=== PATIENT | male | born 1955 | race Asian ===

== ENCOUNTER 2024-06-01 16:52 | Emergency (ER) | payer MEDICARE, SELFPAY ==
[2024-06-01] VITALS (7 sets, daily range): BP systolic 121–129; BP diastolic 76–84; PULSE 53–88; RESP 12–20; TEMP 36.4–36.8; O2SAT 95–98; BMI 25.1
--- NOTE | ~2024-06-01 | CT_ITS ---
EXAMINATION: CT ABDOMEN AND PELVIS WITH CONTRAST CLINICAL INFORMATION: Abdominal pain COMPARISON: None available. TECHNIQUE: Multidetector volumetric images were obtained from the superior aspect of the liver through the pubic symphysis following administration 85 mL of Omnipaque 350 intravenous contrast. Sagittal and coronal reformatted images were obtained on the technologist's workstation. Oral contrast: No This CT examination was performed using dose optimization techniques as appropriate, variously including the following: *Automated exposure control *Adjustment of mA and/or kV according to patient size (this includes techniques or standardized protocols for targeted exams where dose is matched to indication/reason for exam; i.e. extremities or head) *Use of iterative reconstruction technique DLP: 412 mGy-cm FINDINGS: LUNG BASES: The visualized lung bases are unremarkable. LIVER, GALLBLADDER, AND BILIARY TREE: The liver is normal in size, shape, and attenuation. 1.1 cm simple fluid density cyst in the dome of the liver. Postsurgical changes consistent with liver transplant. Hepatic vasculature appears patent. No biliary ductal dilatation is present. Status post cholecystectomy PANCREAS: Unremarkable. SPLEEN: Unremarkable. ADRENAL GLANDS: Unremarkable. KIDNEYS AND URETERS: The kidneys are normal in size, shape, and attenuation. No hydronephrosis, hydroureter, or calculi seen. No perinephric stranding. Scattered subcentimeter hypodensities within both kidneys which are too small to reliably characterize but likely represent simple cysts. BLADDER: Unremarkable. GASTROINTESTINAL TRACT: The proximal small bowel loops are mildly dilated and otherwise a taper normally into the distal small bowel loops which are normal in caliber. No evidence of obstruction. Air and stool seen in the proximal colon and distal colon is decompressed. No focal bowel wall thickening or inflammatory stranding is seen. The appendix is normal. ABDOMINAL WALL: No significant hernia is appreciated. LYMPH NODES: Normal. VASCULAR: Aorta is normal in caliber. Scattered atherosclerotic wall calcifications PELVIC VISCERA: Unremarkable. OSSEOUS STRUCTURES: Unremarkable. CT/CT abdomen pelvis w IV con IMPRESSION: 1. Mildly dilated proximal small bowel loops which otherwise taper normally into the distal small bowel loops. No evidence of obstruction. No focal bowel wall thickening or inflammatory stranding. 2. Status post liver transplant. Small hepatic cyst. 3. Status post cholecystectomy. Electronically signed by: Vivek Almendarez MD 06/01/2024 09:37 PM EST
--- NOTE | 2024-06-01 17:34 | ED.GENADULT ---
HPI - General Adult General Chief complaint: Abdominal Pain Stated complaint: abd pain Time Seen by Provider: 06/01/24 16:57 Source: patient, RN notes reviewed and old records reviewed Mode of arrival: EMS Limitations: no limitations History of Present Illness ED Provider: Bertin FLORENTINO narrative: This is a 69-year-old male with complex past medical history including cardiac bypass as well as a liver transplant in 2018 for liver cancer, patient reports that he takes a lot of meds however can not recall exact names, however is compliant with them. Patient reports that a few hours ago he had an acute onset of a lower abdominal pain rated 9-10 out of 10. He did have 1 episode of vomiting after he tried to take his medications with some water, and reports that he did feel better after he vomited. Patient reports that the pain comes and goes, and rates it is about an 8/10 now. Patient did have 2 bowel movements today, but reports he has not been able to pass flatus for the past 1-2 days. He is able to tolerate fluids, however has not been able to eat because he reports that he will throw it up. Denies fever, headache, diarrhea, urinary symptoms. Patient reports a remote history of appendectomy Related Data Previous Rx's ?Medication ?Instructions ?Recorded ondansetron 4 mg disintegrating 4 mg PO Q8H PRN nausea and 06/01/24 tablet vomiting #20 tabs Allergies Allergy/AdvReac Type Severity Reaction Status Date / Time Vidtwvi-BKO-IlU Reductase Allergy Intermediate COUGH Verified 06/01/24 17:06 Inhibitor [NYSOPIN-CDB-ADM REDUCTASE INHIBITOR] lisinopril [LISINOPRIL] AdvReac Intermediate COUGH Verified 06/01/24 17:06 Review of Systems Constitutional: Constitutional: Denies body ache(s), Denies chills, Denies fever(s) and Denies headache(s) Eyes: Eyes: Denies blurry vision ENT: Denies vertigo, Denies dizziness and Denies headache(s) Cardiovascular: Cardiovascular: Denies chest pain and Denies dyspnea Respiratory: Respiratory: Denies cough and Denies dyspnea Gastrointestinal: Gastrointestinal: Reports abdominal pain, Reports nausea and Reports vomiting Musculoskeletal: Musculoskeletal: Denies back pain Neurologic: Denies vertigo, Denies dizziness and Denies headache(s) Psychiatric: Psychiatric: Denies anxiety PMF Past Medical History Medical History (Updated 06/01/24 @ 18:05 by Nick Denton) Chronic back pain Surgical History (Updated 06/01/24 @ 17:08 by Viry Hendricks RN) H/O heart surgery Liver transplant recipient Social History Social History Smoked in Last 30 Days: No Use of substances other than those prescribed or required for medical reasons: No Advance Directives: No Advance Directives Information Provided: Yes Do you have a plan to hurt others: No Plan Physical Exam ED Vital Signs: Vital Signs - 24 hr 06/01/24 17:04 06/01/24 19:16 06/01/24 19:47 Temperature 98.2 F 97.8 F Pulse Rate 69 58 Respiratory Rate 20 18 20 Blood Pressure 121/83 129/81 Pulse Oximetry 97 96 Oxygen Delivery Method Room Air Room Air 06/01/24 21:33 Temperature 97.5 F Pulse Rate 64 Respiratory Rate 12 Blood Pressure 129/76 Pulse Oximetry 96 Oxygen Delivery Method Room Air BMI result Body Mass Index 25.1 Const General: cooperative, alert, awake and well groomed Nutritional Appearance: average body habitus Cardio Other: Normal rate rhythm. Without rubs murmurs or gallop. GI Other: Patient has multiple surgical scars on his upper and lower abdomen Abdomen is soft, nondistended. Patient does have tenderness to palpation of his lower abdomen, mainly on the right side and midline. Inspection: Yes scar Palpation (GI): Tenderness to palpation present (GI), no guarding and not rigid Course Reevaluation(s) Reevaluation #1: Patient's CT scan shows no evidence of obstruction. He likely has a viral enteritis. He was able to drink apple juice without any further pain or vomiting, the patient will be discharged home with Zofralexa Time: 22:53 Medications Administered Discontinued Medications Generic Name Dose Route Start Last Admin Trade Name Freq PRN Reason Stop Dose Admin Hydromorphone HCl 1 mg 06/01/24 19:39 06/01/24 19:47 Hydromorphone Hcl 1 Mg/Ml Syringe IVPUSH 06/01/24 19:40 1 mg ONCE ONE Administration Protocol Sodium Chloride 1,000 mls @ 999 mls/hr 06/01/24 18:00 06/01/24 19:00 Ns IV 06/01/24 19:00 Infused .Q1H1M EVELYN Infusion Iohexol 100 ml 06/01/24 18:26 06/01/24 18:26 Iohexol 350 Mg/Ml 100 Ml Infus..Btl IV 06/01/24 18:27 85 ml ONCE ONE Administration Morphine Sulfate 4 mg 06/01/24 17:52 06/01/24 18:00 Morphine Sulfate 4 Mg/Ml Cartridge IVPUSH 06/01/24 17:53 4 mg ONCE ONE Administration Protocol Ondansetron HCl 4 mg 06/01/24 17:52 06/01/24 18:00 Ondansetron Hcl 4 Mg/2 Ml Vial IVPUSH 06/01/24 17:53 4 mg ONCE ONE Administration Ondansetron HCl 4 mg 06/01/24 20:40 06/01/24 21:07 Ondansetron Hcl 4 Mg/2 Ml Vial IVPUSH 06/01/24 20:41 4 mg ONCE ONE Administration Medical Decision Making Medical Decision Making [facility] Narrative: 69-year-old male with complex past medical history presents for a sudden onset of mid to lower abdominal pain for the last few hours. He reports he has not passed flatus and a few days. He has multiple previous abdominal Surgeries, most likely diagnosis is a small bowel obstruction. He reports a history of appendectomy. Also in the differential is diverticulitis, obstructive uropathy or a viral syndrome. Differential Diagnosis Differential Diagnoses: The differential diagnosis associated with the presentation includes As above Lab Data [facility] Lab Attestation statement: I reviewed the patient's lab results. Mild leukocytosis with a left shift. No anemia. Normal platelet count. 06/01/24 17:51 06/01/24 17:51 Labs: Lab Results 06/01/24 06/01/24 Range/Units 17:51 18:39 WBC 12.1 H (4.8-10.8) X10*3/uL RBC 6.02 H (4.60-5.80) X10*6/uL Hgb 16.5 (14.0-18.0) g/dl Hct 50.4 (42.0-52.0) % MCV 83.7 (80.0-98.0) fL MCH 27.4 (27.0-33.0) pg MCHC 32.7 (31.0-36.0) g/dl RDW 13.1 (11.0-16.0) % Plt Count 206 (160-400) X10*3/uL MPV 10.8 (9.4-12.4) fL Immature Gran % (Auto) 0.2 (0.0-0.4) % Neut % (Auto) 89.5 H (45-73) % Lymph % (Auto) 5.5 L (20-40) % Mccracken % (Auto) 4.2 (2-11) % Eos % (Auto) 0.4 (0-4) % Baso % (Auto) 0.2 (0-2) % Lymph # (Auto) 0.7 L (1.2-4.9) X10*3/uL Mccracken # (Auto) 0.5 (0.1-1.2) X10*3/uL Eos # (Auto) 0.1 (0.0-0.4) X10*3/uL Baso # (Auto) 0.0 (0.0-0.2) X10*3/uL Abs Immat Gran (auto) 0.03 (0.00-0.03) X10*3/uL Absolute Neuts (auto) 10.8 H (2.0-8.3) x10*3/uL Absolute Nucleated RBC 0.000 (0.0-0.012) X10*3/uL Nucleated RBC % (auto) 0.0 (0.0-0.2) /100WBC Sodium 142 (135-145) mmol/L Potassium 3.8 (3.3-5.1) mmol/L Chloride 103 (96-108) mmol/L Carbon Dioxide 29 (22-29) mmol/L Anion Gap 14 (12-20) BUN 10 (9-16) mg/dL Creatinine 1.10 (0.5-1.4) mg/dL Estim Creat Clear Calc 51.7 Estimated GFR > 60 Random Glucose 100 (60-115) mg/dL Lactic Acid 0.9 (0.5-2.0) mmol/L Calcium 9.7 (8.4-10.2) mg/dL Magnesium 2.1 (1.6-2.6) mg/dL Total Bilirubin 1.1 H (0.0-1.0) mg/dL AST 41 H (5-37) U/L ALT 22 (0-40) U/L Alkaline Phosphatase 145 H (39-117) U/L Total Protein 7.6 (6.5-8.0) g/dL Albumin 4.2 (3.5-5.0) g/dL Lipase 13 (8-78) U/L Urine Color Yellow Urine Appearance Clear Urine pH 8.5 (5.0-9.0) Ur Specific [place] 1.015 (1.005-1.025) Urine Protein Negative (Neg-Trace) mg/dL Urine Glucose (UA) Negative (Negative) mg/dL Urine Ketones Negative (Negative) mg/dL Urine Blood Trace H (Negative) Urine Nitrite Negative (Negative) Ur Leukocyte Esterase Negative (Negative) Urine RBC 6-10 H (0-2) /HPF Urine WBC 0-5 (0-5) /HPF Ur Squamous Epith Cells 0-2 (0-2) /HPF Urine Bacteria None Seen (None Seen) Hyaline Casts 0-2 (0-2) /LPF Independent Interpretation I performed an independent interpretation of an: EKG (Sinus bradycardia with a rate of 59 beats minute.) Radiology Impression Discussion of test interpretation with radiology: I have reviewed the radiologist's reading. Radiologist Impression: FINDINGS: LUNG BASES: The visualized lung bases are unremarkable. LIVER, GALLBLADDER, AND BILIARY TREE: The liver is normal in size, shape, and attenuation. 1.1 cm simple fluid density cyst in the dome of the liver. Postsurgical changes consistent with liver transplant. Hepatic vasculature appears patent. No biliary ductal dilatation is present. Status post cholecystectomy PANCREAS: Unremarkable. SPLEEN: Unremarkable. ADRENAL GLANDS: Unremarkable. KIDNEYS AND URETERS: The kidneys are normal in size, shape, and attenuation. No hydronephrosis, hydroureter, or calculi seen. No perinephric stranding. Scattered subcentimeter hypodensities within both kidneys which are too small to reliably characterize but likely represent simple cysts. BLADDER: Unremarkable. GASTROINTESTINAL TRACT: The proximal small bowel loops are mildly dilated and otherwise a taper normally into the distal small bowel loops which are normal in caliber. No evidence of obstruction. Air and stool seen in the proximal colon and distal colon is decompressed. No focal bowel wall thickening or inflammatory stranding is seen. The appendix is normal. ABDOMINAL WALL: No significant hernia is appreciated. LYMPH NODES: Normal. VASCULAR: Aorta is normal in caliber. Scattered atherosclerotic wall calcifications PELVIC VISCERA: Unremarkable. OSSEOUS STRUCTURES: Unremarkable. CT/CT abdomen pelvis w IV con IMPRESSION: 1. Mildly dilated proximal small bowel loops which otherwise taper normally into the distal small bowel loops. No evidence of obstruction. No focal bowel wall thickening or inflammatory stranding. 2. Status post liver transplant. Small hepatic cyst. 3. Status post cholecystectomy. Electronically signed by: Vivek Almendarez MD 06/01/2024 09:37 PM [facility] [place] Discharge Plan Discharge Clinical Impression: Abdominal pain Patient Disposition: Home, Self-Care Instructions: Acute Nausea and Vomiting (ED) Additional Instructions: Your workup in the ER today was reassuring. Your CT scan did not show any evidence of obstruction. Take Zofran for nausea or vomiting. Follow-up with your primary doctor, return for new or worsening symptoms Prescriptions: New ondansetron 4 mg tablet,disintegrating 4 mg PO Q8H PRN (Reason: nausea and vomiting) Qty: 20 0RF Print Language: Argentine
--- NOTE | 2024-06-01 17:35 | ECG_ITS ---
Test Reason : PAIN Blood Pressure : / mmHG Vent. Rate : 059 BPM Atrial Rate : 059 BPM P-R Int : 120 ms QRS Dur : 086 ms QT Int : 424 ms P-R-T Axes : -17 043 005 degrees QTc Int : 419 ms Sinus bradycardia T wave abnormality, consider anterolateral ischemia Abnormal ECG No previous ECGs available Referred By: Nick Denton Electronically Signed By:Aric Brown
--- NOTE | 2024-06-01 17:53 | PC.NURSE ---
pt a&ox3, vss, pt c/o 8/10 lt lower abd pain, iv inserted, labs drawn, ekg performed, provider asked for pain medication and pt awaiting ct scan.
[2024-06-01 17:55] LABS: MANUAL DIFF FLAG NO
[2024-06-01 17:56] LABS: Basophils Percent Auto 0.2 % (0-2); Eosinophils Absolute Auto 0.1 X10*3/uL (0.0-0.4); Eosinophils Percent Auto 0.4 % (0-4); Hematocrit 50.4 % (42.0-52.0); Hemoglobin 16.5 g/dl (14.0-18.0); Imm Gran Abs Auto 0.03 X10*3/uL (0.00-0.03); Imm Gran Pct Auto 0.2 % (0.0-0.4); Lymphocytes Absolute Auto 0.7 X10*3/uL (1.2-4.9); Lymphocytes Percent Auto 5.5 % (20-40); Mean Corpuscular HGB Conc 32.7 g/dl (31.0-36.0); Mean Corpuscular Hemoglobin 27.4 pg (27.0-33.0); Mean Corpuscular Volume 83.7 fL (80.0-98.0); Mean Platelet Volume 10.8 fL (9.4-12.4); Monocytes Absolute Auto 0.5 X10*3/uL (0.1-1.2); Monocytes Percent Auto 4.2 % (2-11); Neutrophils Absolute Auto 10.8 x10*3/uL (2.0-8.3); Neutrophils Percent Auto 89.5 % (45-73); Platelet Count 206 X10*3/uL (160-400); Red Blood Count 6.02 X10*6/uL (4.60-5.80); Red Cell Distribution Width 13.1 % (11.0-16.0); White Blood Count 12.1 X10*3/uL (4.8-10.8)
[2024-06-01] MEDS: Morphine Sulfate 4 MG/ML CARTRIDGE IVPUSH (18:00)
[2024-06-01] MEDS: ondansetron HCL 4 MG/2 ML VIAL IVPUSH ×2 (18:00→21:07)
[2024-06-01] MEDS: 0.9 % Sodium Chloride 1,000 ML 999 ML IV (18:00)
--- NOTE | 2024-06-01 18:03 | PC.NURSE ---
pt medicated for 02/06 abd pain
[2024-06-01 18:10] LABS: Lactic Acid 0.9 mmol/L (0.5-2.0)
[2024-06-01 18:12] LABS: Alanine Aminotransferase 22 U/L (0-40); Albumin Level 4.2 g/dL (3.5-5.0); Alkaline Phosphatase 145 U/L (39-117); Anion Gap 14 (12-20); Aspartate Amino Transferase 41 U/L (5-37); Bilirubin Total 1.1 mg/dL (0.0-1.0); Blood Urea Nitrogen 10 mg/dL (9-16); Calcium 9.7 mg/dL (8.4-10.2); Carbon Dioxide 29 mmol/L (22-29); Chloride 103 mmol/L (96-108); Creatinine Clr Calc Pharmacy 51.7; Estimated Glomerular Filt Rate > 60; Glucose Random 100 mg/dL (60-115); Lipase 13 U/L (8-78); Magnesium 2.1 mg/dL (1.6-2.6); Potassium 3.8 mmol/L (3.3-5.1); Sodium 142 mmol/L (135-145); Total Protein 7.6 g/dL (6.5-8.0)
--- NOTE | 2024-06-01 18:21 | MHC.EDTECH ---
gave patient urine cup when patient is able to give a urine sample. cup at bedside.
[2024-06-01] MEDS: iohexoL 350 MG/ML 100 ML INFUS..BTL IV (18:26)
[2024-06-01 18:46] LABS: Appearance Urine Clear; Color Urine Yellow; Glucose Urine UA Negative (Negative); Leukocyte Esterase Urine Negative (Negative); Nitrite Urine Negative (Negative); PH 8.5 (5.0-9.0); Specific Gravity - Urine 1.015 (1.005-1.025); UMIC TRIGGER UACC YES; Urine Blood Trace (Negative); Urine Ketones Negative (Negative); Urine Protein Negative (Neg-Trace)
[2024-06-01 18:49] LABS: Bacteria Urine None Seen (None Seen); Hyaline Casts Urine 0-2 /LPF (0-2); Squamous Epithelial Cell Urine 0-2 /HPF (0-2); WBC Urine 0-5 /HPF (0-5)
[2024-06-01] MEDS: HYDROmorphone HCl 1 MG/ML SYRINGE IVPUSH (19:47)
--- NOTE | 2024-06-01 22:02 | PC.NURSE ---
PO challenge by Bertin THOMAS. Pt rapidly drank blas devon. Will monitor for nausea/vomiting. No obstruction per radiology. Care ongoing.
--- NOTE | 2024-06-01 23:43 | PC.NURSE ---
reviewed discharge instructions with pt, pt verbalized understanding, no sign of distress upon discharge. pt left with a steady gait.
== END 2024-06-01 23:49 | disposition home or self-care (01) ==
PROVIDERS: Physician Assistant; Emergency Provider Emergency Medicine Emergency Medical Services; PCP Family Medicine
DX: R10.2 Pelvic and perineal pain (principal); R11.2 Nausea with vomiting, unspecified; R07.89 Other chest pain; R00.1 Bradycardia, unspecified; Z79.899 Other long term (current) drug therapy
CPT/HCPCS: 36415; 74177; 80053; 81001; 83605; 83690; 83735; 85025; 93005; 96361; 96374; 96375; 96376; 99285; J1171; J2270; J2405; Q9967

== ENCOUNTER → 2024-06-01 17:35 | Outpatient (BNV) | payer MEDICARE, SELFPAY | PROVIDERS: Emergency Provider Emergency Medicine Emergency Medical Services; PCP Family Medicine; Visit Provider Internal Medicine Cardiovascular Disease | DX: R00.1 Bradycardia, unspecified (principal) | CPT/HCPCS: 93010 ==